=== PATIENT | male | born 1960 | race Caucasian/White ===

== ENCOUNTER 2022-06-21 07:31 | Emergency (ER) | payer BC ==
[2022-06-21] MEDS ORDERED: Sodium Chloride 0.9% 1,000 ML IV ONE (07:49)
[2022-06-21] MEDS ORDERED: Sodium Chloride 0.9% 1,000 ML ONE (07:51)
[2022-06-21 08:22] LABS: ANION GAP 12.8 mmol/L (5-15)
[2022-06-21] MEDS ORDERED: Scopolamine 1.5 MG Transdermal Patch TRDERM PRN (08:25)
== END 2022-06-21 09:45 | disposition home or self-care (01) ==
LOC: KA.ED 07:31
DX: R42 Dizziness and giddiness (principal); M19.90 Unspecified osteoarthritis, unspecified site; I49.8 Other specified cardiac arrhythmias; Z79.82 Long term (current) use of aspirin; Z79.899 Other long term (current) drug therapy; Z91.011 Allergy to milk products
CPT/HCPCS: 36415; 80048; 85025; 93005; 93010; 96360; 99284; 99284-25; A9270-GY; J7030

== ENCOUNTER 2024-06-10 13:19 | Emergency (ER) | payer MEDICARE ==
[2024-06-10] MEDS: Diphtheria,Pertussis(Acell),Tetanus Vaccine 0.5 ML Syringe IM ONE (13:33)
[2024-06-10] MEDS: Lidocaine 2% 5 ML SDV INJECT ONE (13:36)
[2024-06-10] MEDS: Bacitracin/Neomycin/Polymyxin B Oint 0.9 GM U/D Packet TOP ONE (13:36)
== END 2024-06-10 14:25 | disposition home or self-care (01) ==
LOC: KA.ED 13:19
DX: S62.667A Nondisplaced fracture of distal phalanx of left little finger, initial encounter for closed fracture (principal); S61.217A Laceration without foreign body of left little finger without damage to nail, initial encounter; Z23 Encounter for immunization; E78.00 Pure hypercholesterolemia, unspecified; Z86.16 Personal history of COVID-19; Z79.899 Other long term (current) drug therapy; Z79.82 Long term (current) use of aspirin; Z91.011 Allergy to milk products; X58.XXXA Exposure to other specified factors, initial encounter
CPT/HCPCS: 12001; 73140-F4; 90471; 90715; 99283; 99283-25; J3490